=== PATIENT | male | born 1935 | race Caucasian/White ===

== ENCOUNTER 2018-09-23 11:11 | Outpatient (CLI) | payer MEDICARE ==
[2018-09-23 17:25] LABS: ABSOLUTE RETICS # AUTO 0.049 10^6/uL (0.020-0.110); BASOPHILS % (AUTO) 0.5 %; EOSINOPHILS # (AUTO) 0.2 10^3/uL (0.0-0.7); EOSINOPHILS % (AUTO) 3.1 %; HGB - HEMOGLOBIN 11.4 g/dL (14.0-18.0); LYMPHOCYTES # (AUTO) 1.5 10^3/uL (1.5-3.5); LYMPHOCYTES % (AUTO) 27.2 %; MEAN CORPUSCULAR HEMOGLOBIN 31.6 pg (27.0-31.0); MEAN CORPUSCULAR HGB CONC 33.5 g/dL (32.0-36.0); MEAN CORPUSCULAR VOLUME 94.2 fL (80.0-94.0); MONOCYTES # (AUTO) 0.4 10^3/uL (0.0-1.0); MONOCYTES % (AUTO) 6.3 %; NEUTROPHILS # (AUTO) 3.5 10^3/uL (1.5-6.6); NEUTROPHILS % (AUTO) 62.5 %; PLT - PLATELET COUNT 208 10^3/uL (130-450); RED BLOOD COUNT 3.61 10^6/uL (4.70-6.10); RED CELL DISTRIBUTION WIDTH 12.6 % (12.0-15.0); WHITE BLOOD COUNT 5.5 x10^3/uL (4.8-10.8)
[2018-09-23 17:54] LABS: FERRITIN 87.8 ng/mL (23.9-336.2)
[2018-09-23 18:17] LABS: % IRON SATURATION 36 % (20-50); IRON 102 ug/dL (45-182); TOTAL IRON BINDING CAPACITY 283 ug/dL (250-450); TRANSFERRIN 202 mg/dL (180-329)
== END 2018-09-23 11:12 | disposition home or self-care (01) ==
LOC: LAB.F 11:11
PROVIDERS: ATTEND Physician Assistant
DX: D64.9 Anemia, unspecified (principal)
CPT/HCPCS: 36415; 82607; 82728; 82746; 83540; 83921; 84466; 85025; 85044

== ENCOUNTER 2018-12-01 10:58 | Outpatient (CLI) | payer MEDICARE ==
[2018-12-01 18:49] LABS: BASOPHILS % (AUTO) 0.4 %; EOSINOPHILS # (AUTO) 0.1 10^3/uL (0.0-0.7); EOSINOPHILS % (AUTO) 2.6 %; HGB - HEMOGLOBIN 10.8 g/dL (14.0-18.0); LYMPHOCYTES # (AUTO) 1.3 10^3/uL (1.5-3.5); LYMPHOCYTES % (AUTO) 23.8 %; MEAN CORPUSCULAR HGB CONC 33.8 g/dL (32.0-36.0); MEAN PLATELET VOLUME 9.9 fL (7.4-11.4); MONOCYTES # (AUTO) 0.4 10^3/uL (0.0-1.0); NEUTROPHILS # (AUTO) 3.5 10^3/uL (1.5-6.6); NEUTROPHILS % (AUTO) 65.8 %; PLT - PLATELET COUNT 199 10^3/uL (130-450); RED BLOOD COUNT 3.37 10^6/uL (4.70-6.10); RED CELL DISTRIBUTION WIDTH 12.5 % (12.0-15.0); WHITE BLOOD COUNT 5.3 x10^3/uL (4.8-10.8)
== END 2018-12-01 10:59 | disposition home or self-care (01) ==
LOC: LAB.S 10:58
PROVIDERS: ATTEND Physician Assistant
DX: D64.9 Anemia, unspecified (principal)
CPT/HCPCS: 36415; 85025

== ENCOUNTER 2019-10-06 14:53 | Outpatient (CLI) | payer MEDICARE, BC ==
--- NOTE | 2019-10-06 14:56 | XRAY Report ---
PROCEDURE: Toe(s) LT INDICATIONS: CRUSHING INJURY TO GREAT LEFT TOE TECHNIQUE: 3 views of the first toe(s) acquired. COMPARISON: None FINDINGS: Bones: Linear radiolucency involving medial aspect of first distal phalangeal base with fairly well-c orticated margin extending to first interphalangeal joint space most likely represent nutrient vessel . A subtle nondisplaced fracture cannot be entirely excluded. Osteoarthritic changes are noted in fir st MTP joint and first interphalangeal joint. No other fracture or dislocation is seen. No suspicious bony lesions. Soft tissues: No suspicious soft tissue densities. Vascular calcifications are noted in visualized forefoot soft tissue. IMPRESSION: 1. No definite acute left great toe fracture or dislocation. Left great toe osteoarthritis. 2. Corticated radiolucency involving medial aspect of first distal phalangeal base most likely repres ent a nutrient vessel. Suggest clinical correlation for rule out a nondisplaced fracture in this carl on. Reviewed by: Memo Garcia MD on 10/06/2019 2:55 PM PDT Approved by: Memo Garcia MD on 10/06/2019 2:55 PM PDT Station ID: [id number]
== END 2019-10-06 23:59 | disposition home or self-care (01) ==
LOC: DI.S 14:53
PROVIDERS: ATTEND Physician Assistant Medical
DX: S97.112A Crushing injury of left great toe, initial encounter (principal); M19.072 Primary osteoarthritis, left ankle and foot
CPT/HCPCS: 73660

== ENCOUNTER 2022-10-12 11:02 | Emergency (ER) | payer MEDICARE, BC ==
[2022-10-12 11:31] VITALS: BP 127/51
[2022-10-12 12:00] LABS: BILIRUBIN,URINE NEGATIVE (NEGATIVE); GLUCOSE, URINE (UA) NEGATIVE (NEGATIVE); KETONES,URINE (UA) NEGATIVE (NEGATIVE); LEUKOCYTE ESTERASE, URINE SMALL (NEGATIVE); NITRITE,URINE NEGATIVE (NEGATIVE); OCCULT BLOOD,URINE LARGE (NEGATIVE); PH,URINE 5.5 PH (5.0-7.5); PROTEIN,URINE 30 mg/dL (NEGATIVE); UROBILINOGEN,URINE 0.2 (NORMAL) E.U./dL (NORMAL)
[2022-10-12 12:01] LABS: CLARITY,URINE HAZY (CLEAR)
[2022-10-12 12:09] LABS: BACTERIA,URINE Few /HPF (None Seen); SQUAMOUS EPITHELIAL CELL,UR NONE SEEN (<= Few)
--- NOTE | 2022-10-12 12:19 | ED Physician Documentation ---
PD HPI MALE - Stated complaint Stated Complaint: MALE - Chief complaint Chief Complaint: UTI - History obtained from History obtained from: Patient - History of Present Illness Timing - onset: How many days ago (2) Timing - duration: Days (2) Timing - details: Gradual onset, Still present Associated symptoms: Dysuria, Urinary frequency Similar symptoms before: Diagnosis (UTI) Recently seen: Not recently seen - Additional information Additional information: 87-year-old Homer gill has a history of prostate cancer and has had his prostate removed. He is incontinent of urine and he has developed symptoms of dysuria. He has periodically having stinging when he urinates. He is not having nausea back pain or fever. He has had an infection similar to this about 5 or 6 weeks ago and he took a 7-day course of Cipro which he states cleared up his symptoms. He is has return of his symptoms and he presents now for treatment. He indicates to me that he is leaving to go to [place] in 1 week and he is wondering if he should bring some antibiotic with him. Review of Systems Constitutional: denies: Fever Eyes: denies: Decreased vision Ears: denies: Ear pain Nose: denies: Congestion Throat: denies: Sore throat Respiratory: denies: Cough GI: denies: Abdominal Pain, Nausea, Vomiting : reports: Dysuria, Frequency, Incontinent PD PAST MEDICAL HISTORY - Present Medications Home Medications: Ambulatory Orders Medication Instructions Recorded Confirmed Ciprofloxacin HCl [Cipro] 500 mg PO BID #14 tablet 10/12/22 - Allergies Allergies/Adverse Reactions: Allergies Allergy/AdvReac Type Severity Reaction Status Date / Time No Known Drug Allergies Allergy Verified 10/12/22 11:25 PD ED PE NORMAL - Vitals Vital signs reviewed: Yes (wide pulse pressure) - General General: Alert and oriented X 3, No acute distress, Well developed/nourished - HEENT HEENT: Atraumatic, PERRL, EOMI - Respiratory Respiratory: No respiratory distress - Back Back: No CVA TTP, No spinal TTP - Derm Derm: Normal color, Warm and dry, No rash - Extremities Extremities: No deformity, No edema - Neuro Neuro: Alert and oriented X 3, 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, No motor deficit, No sensory deficit, Normal speech Eye Opening: Spontaneous Motor: Obeys Commands Verbal: Oriented GCS Score: 15 - Psych Psych: Normal mood, Normal affect Results - Vitals Vitals: Vital Signs - 24 hr 10/12/22 11:25 Temperature 36.1 C L Heart Rate 63 Respiratory 16 Rate Blood Pressure 127/51 L O2 Saturation 99 Oxygen O2 Source Room air - Labs Labs: Laboratory Tests 10/12/22 11:50 Urine Color YELLOW Urine Clarity HAZY Urine pH 5.5 Ur Specific [place] 1.020 Urine Protein 30 H Urine Glucose (UA) NEGATIVE Urine Ketones NEGATIVE Urine Occult Blood LARGE H Urine Nitrite NEGATIVE Urine Bilirubin NEGATIVE Urine Urobilinogen 0.2 (NORMAL) Ur Leukocyte Esterase SMALL H Urine RBC 11-25 H Urine WBC 6-10 H Ur Squamous Epith Cells NONE SEEN Urine Bacteria Few Ur Microscopic Review INDICATED Urine Culture Comments INDICATED PD Medical Decision Making - ED course Complexity details: considered differential, d/w patient Reviewed Lab Results: We evaluated a spot urinalysis showing a specific gravity 1.020 there is some urine protein present some occult blood small leukocyte esterase and 6-10 white blood cells per high-powered field the specimen was adequate for culture.My interpretation of this urinalysis is that it shows signs of infection and it is an adequate specimen for decision-making. ED course: 87-year-old male presents to the Emergency Department with symptoms of dysuria with incontinence. The patient has evidence of infection and has had prior infection with successful treatment. We will retreat the patient and I have indicated to him that I believe it is a good idea if he has antibiotic to take with him on his trip to [place]. I have encouraged the patient to follow-up with his primary care doctor with results of his culture to consider antibiotic to carry with him on traveling. Departure - Departure Disposition: 01 Home, Self Care Clinical Impression: Urinary tract infection Qualifiers: Urinary tract infection type: acute cystitis Hematuria presence: with hematuria Qualified Code(s): N30.01 - Acute cystitis with hematuria Instructions: ED UTI Cystitis Male Follow-Up: ROSALIO COLE MD [Primary Care Provider] - Prescriptions: Ciprofloxacin HCl [Cipro] 500 mg PO BID #14 tablet Comments: Homer, today it does look like you have a urinary tract infection again and the urine specimen you have provided has made the grade for culture. This culture will help guide future treatment and you may get a call from us if there is a problem with the sensitivities. Otherwise my recommendation is to follow-up with your primary care doctor prior to your travel to [place] to consider carrying antibiotic with you if you have symptoms again.I have E scribed the Cipro to the [facility] in [place].
== END 2022-10-12 12:33 | disposition home or self-care (01) ==
LOC: ED 11:02
DX: N30.01 Acute cystitis with hematuria (principal)
CPT/HCPCS: 81001; 81003; 87086; 99283; 99284

== ENCOUNTER 2023-03-23 10:02 | Emergency (ER) | payer MEDICARE, BC ==
[2023-03-23 10:36] VITALS: BP 150/56; O2SAT 100
[2023-03-23 11:14] LABS: BILIRUBIN,URINE NEGATIVE (NEGATIVE); CLARITY,URINE SL. CLOUDY (CLEAR); GLUCOSE, URINE (UA) >=1000 mg/dL (NEGATIVE); KETONES,URINE (UA) NEGATIVE (NEGATIVE); LEUKOCYTE ESTERASE, URINE SMALL (NEGATIVE); NITRITE,URINE NEGATIVE (NEGATIVE); OCCULT BLOOD,URINE LARGE (NEGATIVE); PH,URINE 5.5 PH (5.0-7.5); PROTEIN,URINE NEGATIVE (NEGATIVE); UROBILINOGEN,URINE 0.2 (NORMAL) E.U./dL (NORMAL)
[2023-03-23 11:23] LABS: BACTERIA,URINE None Seen /HPF (None Seen); SQUAMOUS EPITHELIAL CELL,UR RARE Squamous (<= Few); WBC,URINE >25 /HPF (0-3)
[2023-03-23] MEDS ORDERED: cephALEXin 250 MG CAPSULE PO STA (12:14)
--- NOTE | 2023-03-23 12:21 | ED Physician Documentation ---
History of Present Illness - Stated complaint Stated Complaint: - Chief complaint Chief Complaint: UTI - Additonal information Additional information: Patient 87-year-old male presenting to the emergency department with dysuria. Symptoms ongoing x 1 day. Denies fever, chills, flank pain, nausea, vomiting. Reports history of incontinence and does state that he has a history of an enlarged prostate. Review of Systems Constitutional: denies: Fever Eyes: denies: Loss of vision Ears: denies: Loss of hearing Nose: denies: Rhinorrhea / runny nose Cardiac: denies: Chest pain / pressure Respiratory: denies: Dyspnea GI: denies: Abdominal Pain : reports: Dysuria, Frequency PD PAST MEDICAL HISTORY - Past Medical History Past Medical History: No - Past Surgical History Past Surgical History: No - Present Medications Home Medications: Ambulatory Orders Medication Instructions Recorded Confirmed Ciprofloxacin HCl [Cipro] 500 mg PO BID #14 tablet 10/12/22 cephALEXin [Keflex] 500 mg PO Q6H #20 cap 03/23/23 - Allergies Allergies/Adverse Reactions: Allergies Allergy/AdvReac Type Severity Reaction Status Date / Time No Known Drug Allergies Allergy Verified 10/12/22 11:25 - Social History Does the pt smoke?: No Smoking Status: Never smoker PD ED PE NORMAL - General General: Alert and oriented X 3, No acute distress - Respiratory Respiratory: No respiratory distress, Clear bilaterally - Abdomen Abdomen: Normal bowel sounds, Non tender - Back Back: No CVA TTP Results - Vitals Vitals: Vital Signs - 24 hr 03/23/23 10:26 Temperature 36.5 C Heart Rate 64 Respiratory 20 Rate Blood Pressure 150/56 H O2 Saturation 100 Oxygen O2 Source Room air - Labs Labs: Laboratory Tests 03/23/23 11:08 Urine Color YELLOW Urine Clarity SL. CLOUDY Urine pH 5.5 Ur Specific [place] 1.020 Urine Protein NEGATIVE Urine Glucose (UA) >=1000 H Urine Ketones NEGATIVE Urine Occult Blood LARGE H Urine Nitrite NEGATIVE Urine Bilirubin NEGATIVE Urine Urobilinogen 0.2 (NORMAL) Ur Leukocyte Esterase SMALL H Urine RBC 6-10 H Urine WBC >25 H Ur Squamous Epith Cells RARE Squamous Urine Bacteria None Seen Ur Microscopic Review INDICATED Urine Culture Comments INDICATED PD Medical Decision Making - ED course Complexity details: reviewed results, d/w patient ED course: Patient 87-year-old male presenting to the emergency department with dysuria. Afebrile, hemodynamic stable. He reported symptoms ongoing x 1 day. No CVA tenderness. He denied any fever, chills, nausea, vomiting that would be indicative of a more significant or systemic illness. Urine analysis with clear indications of infection with associated hematuria. Will initiate course of oral antibiotic. Will encourage careful follow-up with primary care. Clear return precautions given. Departure - Departure Disposition: Home, Self Care Clinical Impression: UTI (urinary tract infection) Qualifiers: Urinary tract infection type: acute cystitis Hematuria presence: with hematuria Qualified Code(s): N30.01 - Acute cystitis with hematuria Instructions: ED UTI Cystitis Male Prescriptions: cephALEXin [Keflex] 500 mg PO Q6H #20 cap Comments: Thank you for allowing us to care for you today at [facility]. Prescription sent to [facility] in [place]. The urine sample provided today showed some clear indications of infection. I like you to begin a course of oral antibiotics. I have sent your urine for culture and further testing and if there is concern for antibiotic resistance we will contact you directly in the next 1 to 2 days. In the meantime I do recommend increasing your intake and fiber for fluids and natural probiotics while on antibiotics. Your symptoms should be steadily improving over the course the next few days. Please make a follow-up appoint with your primary care doctor when able. If it anytime you develop new or worsening symptoms such as worsening pain, inability to urinate, fever, flank pain or any other concerning symptoms please return to the emergency department.
== END 2023-03-23 12:28 | disposition home or self-care (01) ==
LOC: ED 10:02
DX: N30.01 Acute cystitis with hematuria (principal)
CPT/HCPCS: 81001; 87086; 87181; 99283; A9270; 81003